=== PATIENT | male | born 1990 | race Caucasian/White ===

== ENCOUNTER 2017-12-31 00:14 | Emergency (ER) | payer MEDICAID ==
[~2017-12-31] VITALS: Ht 175.3 cm; Wt 119.4 kg
[2017-12-31 00:22] VITALS: BP 138/75
--- NOTE | 2017-12-31 00:29 | NUR ---
PT TAKEN TO BED 5
--- NOTE | 2017-12-31 00:29 | NUR ---
PATIENT PRESENTS TO ED WITH PRESSURE RIVER PAIN 10/10 X3 DAYS. PT STATES HE HAS TAKEN TYLENOL FOR PAIN WITHOUT RELIEFE. HE HAS SOME NAUSEA WITHOUT VOMITING AND STATES BLURRED VISION SINCE HEAD ACHES STARTED. SKIN IS PINK/WARM/DRY; AAOX4 WITH EVEN AND STEADY GAIT; LUNGS CLEAR BL; HR EVEN AND REGULAR; PT DENIES ANY FEVER, CP, SOB, OR COUGH AT THIS TIME; PATIENT STATES PAIN OF 10/10 AT THIS TIME; VSS; PATIENT POSITIONED FOR COMFORT; HOB ELEVATED; BEDRAILS UP X2; BED DOWN. ER MD MADE AWARE OF PT STATUS. CONTINUE TO MONITOR.
--- NOTE | 2017-12-31 00:40 | NUR ---
Dr. Rivers evaluating patient at bedside.
[2017-12-31] MEDS ORDERED: diphenhydrAMINE 50 MG/ML VIAL IVP ONE (00:55)
[2017-12-31] MEDS ORDERED: KETOROLAC 30 MG/ML VIAL IVP ONE (00:55)
[2017-12-31] MEDS ORDERED: PROCHLORPERAZINE 10 MG/2 ML VIAL IVP ONE (00:55)
--- NOTE | 2017-12-31 01:04 | NUR ---
PT TAKEN TO CT
--- NOTE | 2017-12-31 01:21 | NUR ---
PT RETURN FROM CT
[2017-12-31 01:34] LABS: BASOPHILS # (AUTO) 0.1 K/uL (0.00-0.22); BASOPHILS % (AUTO) 0.7 % (0.0-2.0); EOSINOPHILS # (AUTO) 0.3 K/uL (0-0.4); EOSINOPHILS % (AUTO) 2.9 % (0.0-4.0); HEMATOCRIT 42.6 % (36-52); HEMOGLOBIN 14.2 g/dL (12.0-18.0); LYMPHOCYTES # (AUTO) 2.8 K/uL (2.0-11.5); LYMPHOCYTES % (AUTO) 32.6 % (20.5-51.1); MEAN CORPUSCULAR HEMOGLOBIN 29 pg (27-31); MEAN CORPUSCULAR HGB CONC 33 g/dL (33-37); MEAN CORPUSCULAR VOLUME 86.8 fL (80-94); MONOCYTES # (AUTO) 0.7 K/uL (0.8-1.0); MONOCYTES % (AUTO) 8.2 % (1.7-9.3); NEUTROPHILS # (AUTO) 4.8 K/uL (1.8-7.7); NEUTROPHILS % (AUTO) 55.6 % (42.2-75.2); PLATELET COUNT (AUTO) 250 K/uL (140-450); RED BLOOD CELL COUNT(AUTO) 4.91 MIL/uL (4.20-6.10); RED CELL DISTRIBUTION WIDTH 13.5 % (11.6-13.7); WHITE BLOOD COUNT (AUTO) 8.6 K/uL (4.8-10.8)
[2017-12-31 01:43] LABS: ANION GAP 7.8 (8-16); CARBON DIOXIDE 30.1 mmol/L (21-32); CREATININE 1.1 mg/dL (0.7-1.3); POTASSIUM 3.9 mmol/L (3.5-5.1)
[2017-12-31 01:49] LABS: ALBUMIN 3.6 g/dL (3.4-5.0); TOTAL BILIRUBIN 0.5 mg/dL (0.0-1.0)
[2017-12-31] MEDS ORDERED: AMPICILLIN/SULBACTAM 3 GM in NACL 0.9% 100 ML IV ONE (02:15)
[2017-12-31] MEDS ORDERED: AMPICILLIN/SULBACTAM 3 GM VIAL ONE (02:22)
[2017-12-31 02:58] VITALS: BP 138/75
--- NOTE | 2017-12-31 02:58 | NUR ---
Patient discharged with v/s stable. Written and verbal after care instructions given and explained. Patient alert, oriented and verbalized understanding of instructions. Ambulatory with steady gait. All questions addressed prior to discharge. ID band removed. Patient advised to follow up with PMD. Rx of Augmentin, Ibuprofen, Reglan, Mucinex given. Patient educated on indication of medication including possible reaction and side effects. Opportunity to ask questions provided and answered.
== END 2017-12-31 02:58 | disposition home or self-care (01) ==
LOC: MED 00:14
DX: J01.10 Acute frontal sinusitis, unspecified (principal); J01.20 Acute ethmoidal sinusitis, unspecified; I10 Essential (primary) hypertension
CPT/HCPCS: 36415; 70450; 70486; 80053; 85025; 96365; 96375; 99285; J0295; J0780; J1200; J1885

== ENCOUNTER 2018-02-09 01:25 | Emergency (ER) | payer MEDICAID ==
[~2018-02-09] VITALS: Ht 175.3 cm; Wt 120.2 kg
[2018-02-09 01:25] VITALS: BP 127/76
[2018-02-09] MEDS ORDERED: DICYCLOMINE HCL LIQUID 20 MG, ALUMINUM HYD/MAG/SIMETHICONE 30 ML, LIDOCAINE VISCOUS 2% ... PO ONE ×3 (01:40)
[2018-02-09] MEDS ORDERED: ONDANSETRON 4 MG ODT PO ONE (01:40)
[2018-02-09 01:55] LABS: BASOPHILS # (AUTO) 0.1 K/uL (0.00-0.22); BASOPHILS % (AUTO) 1.2 % (0.0-2.0); EOSINOPHILS # (AUTO) 0.3 K/uL (0-0.4); EOSINOPHILS % (AUTO) 3.1 % (0.0-4.0); HEMATOCRIT 42.2 % (36-52); HEMOGLOBIN 14.4 g/dL (12.0-18.0); LYMPHOCYTES # (AUTO) 3.8 K/uL (2.0-11.5); LYMPHOCYTES % (AUTO) 40.1 % (20.5-51.1); MEAN CORPUSCULAR HEMOGLOBIN 29 pg (27-31); MEAN CORPUSCULAR HGB CONC 34 g/dL (33-37); MEAN CORPUSCULAR VOLUME 84.7 fL (80-94); MONOCYTES # (AUTO) 0.7 K/uL (0.8-1.0); MONOCYTES % (AUTO) 6.9 % (1.7-9.3); NEUTROPHILS # (AUTO) 4.7 K/uL (1.8-7.7); NEUTROPHILS % (AUTO) 48.7 % (42.2-75.2); PLATELET COUNT (AUTO) 250 K/uL (140-450); RED BLOOD CELL COUNT(AUTO) 4.99 MIL/uL (4.20-6.10); RED CELL DISTRIBUTION WIDTH 13.3 % (11.6-13.7); WHITE BLOOD COUNT (AUTO) 9.6 K/uL (4.8-10.8)
[2018-02-09 02:05] LABS: ANION GAP 12.5 (8-16); CARBON DIOXIDE 28.3 mmol/L (21-32); CREATININE 1.2 mg/dL (0.7-1.3); POTASSIUM 3.8 mmol/L (3.5-5.1)
[2018-02-09 02:12] LABS: ALBUMIN 4.1 g/dL (3.4-5.0); TOTAL BILIRUBIN 0.7 mg/dL (0.0-1.0)
[2018-02-09 02:18] VITALS: BP 127/76
== END 2018-02-09 02:18 | disposition home or self-care (01) ==
LOC: MED 01:25
DX: R04.2 Hemoptysis (principal); I10 Essential (primary) hypertension
CPT/HCPCS: 36415; 80053; 85025; 99284; S0119

== ENCOUNTER 2018-10-15 22:35 | Emergency (ER) | payer MEDICAID ==
[~2018-10-15] VITALS: Ht 175.3 cm; Wt 108.9 kg
--- NOTE | 2018-10-15 22:39 | NUR ---
PT TAKEN TO BED 9
[2018-10-15 22:42] VITALS: BP 122/90
--- NOTE | 2018-10-15 22:50 | NUR ---
28 y/o M presented to the ED with c/o r leg pain that radiates to the groin. AAOx4. NKA. Per pt was lifting child when he felt a cramp in his leg. Aching and throbbbing in sensation. Limited ROM in R leg. Unable to extend R leg without grimacing. 10/10 pain. SKin normal per ethnitcity. No echhymosis noted. Denies PHM. Bedrails x2 up for safety. notified. Will continue to monitor. Addendum: 10/16/18 at 0228 by MED 28 y/o M presented to the ED with c/o r leg pain that radiates to the groin. AAOx4. NKA. Per pt was lifting child when he felt a cramp in his leg. Aching and throbbbing in sensation. Limited ROM in R leg. Unable to extend R leg without grimacing. 10/10 pain. SKin normal per ethnitcity. No echhymosis noted. R knee replacement x 2 years ago. Bedrails x2 up for safety. notified. Will continue to monitor.
[2018-10-15] MEDS ORDERED: DIAZEPAM 5 MG TAB PO ONE (23:05)
[2018-10-15] MEDS ORDERED: KETOROLAC 60 MG/2 ML VIAL IM ONE (23:05)
[2018-10-15] MEDS ORDERED: HYDROcodone/APAP 5/325 MG 1 TAB TAB PO ONE (23:05)
--- NOTE | 2018-10-15 23:45 | NUR ---
Medicated Pt with [place] and Valium. At reassessment, Pt still had c/o pain. notified.
[2018-10-16] MEDS ORDERED: ONDANSETRON 4 MG/2 ML VIAL IVP ONE
[2018-10-16] MEDS ORDERED: MORPHINE SULFATE 4 MG/ML SYR IVP ONE
[2018-10-16] MEDS ORDERED: NACL 0.9% 1,000 ML IV ONE
[2018-10-16 02:04] LABS: APPEARANCE,URINE CLEAR (CLEAR); BILIRUBIN,URINE NEGATIVE (NEGATIVE); BLOOD, URINE NEGATIVE (NEGATIVE); COLOR,URINE ORANGE (YELLOW); LEUKOCYTE ESTERASE ,URINE NEGATIVE (NEGATIVE); NITRITE, URINE NEGATIVE (NEGATIVE); UGLUCOSE NEGATIVE (NEGATIVE)
--- NOTE | 2018-10-16 02:21 | NUR ---
Attempt to get Pt out of bed and ambulate. Able to stand briefly but felt weakness and was not able to ambulate any distance.
[2018-10-16 02:30] LABS: RBC,URINE 0-5 /HPF (0-5); WBC,URINE 0-5 /HPF (0-5)
[2018-10-16 03:20] LABS: ANION GAP 10.2 (8-16); CARBON DIOXIDE 29.9 mmol/L (21-32); CREATININE 1.1 mg/dL (0.7-1.3); POTASSIUM 4.1 mmol/L (3.5-5.1)
--- NOTE | 2018-10-16 03:46 | NUR ---
PT TAKEN TO BED 9 VIA W/C
--- NOTE | 2018-10-16 05:21 | NUR ---
Dr. Escoto evaluating patient at bedside.
[2018-10-16] MEDS ORDERED: KETOROLAC 30 MG/ML VIAL IVP ONE (05:25)
[2018-10-16] MEDS ORDERED: methylPREDNISolone SS 125 MG/2 ML VIAL IVP ONE (05:25)
--- NOTE | 2018-10-16 05:54 | NUR ---
PT TAKEN TO RAD
--- NOTE | 2018-10-16 05:56 | NUR ---
PT AMBULATED TO THE RESTROOM WITHOUT ASSISTANCE
--- NOTE | 2018-10-16 05:57 | NUR ---
PT AMBULATING WITH LITTLE ASSISTANCE TO THE RESTROOM. PT TOLERATED WELL.
[2018-10-16 06:05] VITALS: BP 124/91
--- NOTE | 2018-10-16 06:05 | NUR ---
Patient discharged with v/s stable. Written and verbal after care instructions given and explained. Patient alert, oriented and verbalized understanding of instructions. Ambulatory with steady gait. All questions addressed prior to discharge. ID band removed. Patient advised to follow up with PMD. Rx of OMEPRAZOLE, NORCO, PREDNISONE, AND NAPROSYN given. Patient educated on indication of medication including possible reaction and side effects. Opportunity to ask questions provided and answered.
== END 2018-10-16 06:05 | disposition home or self-care (01) ==
LOC: MED 22:35
DX: M51.16 Intervertebral disc disorders with radiculopathy, lumbar region (principal); I10 Essential (primary) hypertension
CPT/HCPCS: 36415; 72132; 80048; 81001; 96372; 96374; 96375; 99284; J1885; J2270; J2405; J2930; J7030; Q9967; 99283

== ENCOUNTER 2019-08-23 21:47 | Emergency (ER) | payer OTHER, MEDICAID ==
[~2019-08-23] VITALS: Ht 175.3 cm; Wt 121.1 kg
[2019-08-23 21:57] VITALS: BP 153/81
--- NOTE | 2019-08-23 21:57 | NUR ---
TO BED # 06 AMBULATORY
--- NOTE | 2019-08-23 22:02 | NUR ---
PT TAKEN TO BED 6
--- NOTE | 2019-08-23 22:12 | NUR ---
29/M C/O FORESKIN SWELLING AND ABRASIONS ON THE FORESKIN. STATES DYSURIA AND WHITE DISCHARGE. SYMPTOMS STARTED THIS AM.
--- NOTE | 2019-08-23 22:14 | NUR ---
Dr. Escoto examining patient.
[2019-08-23 22:57] VITALS: BP 142/72
--- NOTE | 2019-08-23 22:58 | NUR ---
Patient discharged with v/s stable. Written and verbal after care instructions given and explained. Patient alert, oriented and verbalized understanding of instructions. Ambulatory with steady gait. All questions addressed prior to discharge. ID band removed. Patient advised to follow up with PMD. Rx of naprosyn, keflex, clotrimazole given. Patient educated on indication of medication including possible reaction and side effects. Opportunity to ask questions provided and answered.
== END 2019-08-23 22:58 | disposition home or self-care (01) ==
LOC: MED 21:47
DX: N48.1 Balanitis (principal); K21.9 Gastro-esophageal reflux disease without esophagitis; I10 Essential (primary) hypertension; E11.9 Type 2 diabetes mellitus without complications
CPT/HCPCS: 81002; 82948; 99283

== ENCOUNTER 2019-10-29 21:45 | Emergency (ER) | payer OTHER, MEDICAID ==
[~2019-10-29] VITALS: Ht 175.3 cm; Wt 122.5 kg
[2019-10-29 21:48] VITALS: BP 136/86
--- NOTE | 2019-10-29 21:52 | NUR ---
PT TAKEN TO BED 4
--- NOTE | 2019-10-29 21:55 | NUR ---
PT 29 Y/O MALE BIB SELF FOR C/O N/V/D X 4 DAYS. PT ALSO HAS C/O COUGH AND SORE THROAT X 4 DAYS. PT AAO X4. RESPIRATIONS ARE EVEN AND UNLABORED. DRY COUGH NOTED. LUNG SOUNDS CLEAR A/P. PT ADMITS TO 6/10 EPIGATRIC PAIN. "IT'S TOLERABLE." PT STATES DAUGHTER TESTED POSITIVE FOR FLU AND THINKS HE HAS THE SAME SYMPTOMS. AFEBRILE. VSS. MEDHX: NONE ALLERGIES: NKA
--- NOTE | 2019-10-29 22:05 | NUR ---
Dr. Pedraza examining patient.
[2019-10-29] MEDS ORDERED: NACL 0.9% 1,000 ML IV ONE (23:20)
[2019-10-29] MEDS ORDERED: ONDANSETRON 4 MG/2 ML VIAL IVP ONE (23:20)
--- NOTE | 2019-10-29 23:30 | NUR ---
IV PLACED IN R AC. 20G. IV SITE PATENT. ZOFRAN IVP GIVEN FOR C/O NAUSEA. IVF NS 0.9% 1L BOLUS RUNNING CONTINOUSLY.
--- NOTE | 2019-10-30 00:28 | NUR ---
PT HAS C/O OF NAUSEA RETURNING. MADE AWARE. NEW ORDERS GIVEN.
[2019-10-30] MEDS ORDERED: ONDANSETRON 4 MG/2 ML VIAL IVP ONE (00:30)
--- NOTE | 2019-10-30 01:04 | NUR ---
PT STATES NAUSEA HAS DECREASED. IV FLUIDS ARE DONE. IV SITE IS PATENT. NO REDNESS SWELLING FOR C/O PAIN AT THIS TIME.
[2019-10-30 01:19] VITALS: BP 138/82
== END 2019-10-30 01:19 | disposition home or self-care (01) ==
LOC: MED 21:45
DX: A08.4 Viral intestinal infection, unspecified (principal); R19.7 Diarrhea, unspecified
CPT/HCPCS: 96361; 96374; 96376; 99284; J2405; J7030

== ENCOUNTER 2020-06-12 19:24 | Emergency (ER) | payer OTHER, MEDICAID ==
[~2020-06-12] VITALS: Ht 175.3 cm; Wt 122.5 kg
[2020-06-12 19:42] VITALS: BP 151/91
--- NOTE | 2020-06-12 20:00 | NUR ---
IN TENT SEEING PATIENT
[2020-06-12] MEDS ORDERED: NACL 0.9% 1,000 ML IV ONE (20:05)
[2020-06-12] MEDS ORDERED: KETOROLAC 30 MG/ML VIAL IVP ONE (20:05)
--- NOTE | 2020-06-12 20:10 | NUR ---
PT TAKEN TO BED 9
--- NOTE | 2020-06-12 20:20 | NUR ---
30 Y/O MALE C/O FEVER, +NAUSEA, CHEST TIGHTNESS, SWOLLEN FORESKIN AND BURING WITH URINATION X 1 DAY. PT DENIES PAIN AT THIS TIME. LUNG SOUNDS CLEAR. ABD SOFT NON TENDER. BOWEL SOUNDS ACTIVE. SKIN WARM AND DRY. NKA NO HX
--- NOTE | 2020-06-12 20:21 | NUR ---
LABS COLLECTED AND HANDED TO TALENT AGENT.
[2020-06-12 20:29] LABS: BASOPHILS % (AUTO) 0.8 % (0.0-2.0); EOSINOPHILS # (AUTO) 0.1 K/uL (0-0.4); EOSINOPHILS % (AUTO) 1.2 % (0.0-4.0); HEMATOCRIT 43.7 % (36-52); HEMOGLOBIN 14.6 g/dL (12.0-18.0); LYMPHOCYTES # (AUTO) 1.7 K/uL (2.0-11.5); MEAN CORPUSCULAR HEMOGLOBIN 29 pg (27-31); MEAN CORPUSCULAR HGB CONC 33 g/dL (33-37); MEAN CORPUSCULAR VOLUME 86.8 fL (80-94); MONOCYTES # (AUTO) 0.8 K/uL (0.8-1.0); MONOCYTES % (AUTO) 12.8 % (1.7-9.3); NEUTROPHILS # (AUTO) 3.3 K/uL (1.8-7.7); NEUTROPHILS % (AUTO) 56.2 % (42.2-75.2); PLATELET COUNT (AUTO) 149 K/uL (140-450); RED BLOOD CELL COUNT(AUTO) 5.03 MIL/uL (4.20-6.10); RED CELL DISTRIBUTION WIDTH 13.7 % (11.6-13.7); WHITE BLOOD COUNT (AUTO) 5.9 K/uL (4.8-10.8)
--- NOTE | 2020-06-12 20:36 | NUR ---
XRAY AT BEDSIDE
--- NOTE | 2020-06-12 20:37 | NUR ---
NOVEL SWAB DONE AND SENT TO LAB
[2020-06-12 20:42] LABS: ALBUMIN 3.7 g/dL (3.4-5.0); ANION GAP 18.4 (8-16); CARBON DIOXIDE 22.5 mmol/L (21-32); CREATININE 1.1 mg/dL (0.6-1.3); POTASSIUM 3.9 mmol/L (3.5-5.1); TOTAL BILIRUBIN 1.3 mg/dL (0.0-1.0)
[2020-06-12] MEDS ORDERED: INSULIN REGULAR, HUMAN 100 UNIT/ML VIAL IV STA (21:09)
--- NOTE | 2020-06-12 21:16 | NUR ---
Ultrasound at bedside.
[2020-06-12] MEDS ORDERED: INSULIN REGULAR, HUMAN 100 UNIT/ML VIAL IVP STA (21:19)
--- NOTE | 2020-06-12 22:13 | NUR ---
ERMD AT BEDSIDE EVALUATING PT
[2020-06-12 22:27] VITALS: BP 114/73
--- NOTE | 2020-06-12 22:27 | NUR ---
Patient discharged with v/s stable. Written and verbal after care instructions given and explained. Patient alert, oriented and verbalized understanding of instructions. Ambulatory with steady gait. All questions addressed prior to discharge. ID band removed. Patient advised to follow up with PMD. Rx of CLOTRIMAZOLE given. Patient educated on indication of medication including possible reaction and side effects. Opportunity to ask questions provided and answered.
== END 2020-06-12 22:27 | disposition home or self-care (01) ==
LOC: MED 19:24
DX: U07.1 COVID-19 (principal); R07.9 Chest pain, unspecified; E11.65 Type 2 diabetes mellitus with hyperglycemia; N48.1 Balanitis
CPT/HCPCS: 36415; 71045; 76705; 80053; 82948; 83036; 83880; 84484; 85025; 85610; 85730; 93005; 96361; 96374; 96375; 99285; J1815; J1885; J7030; Q0092; U0003

== ENCOUNTER 2020-06-13 06:05 | Emergency (ER) | payer OTHER, MEDICAID ==
[~2020-06-13] VITALS: Ht 175.3 cm; Wt 122.5 kg
[2020-06-13 06:15] VITALS: BP 147/79
--- NOTE | 2020-06-13 06:15 | NUR ---
PT TO AWAIT IN TENT.
--- NOTE | 2020-06-13 06:15 | NUR ---
30 Y/O MALE C/O FEVER. PT WAS SEEN YESTERDAY AT [facility]. PT ALSO C/O SOB, SORE THROAT, CONGESTION. PT STATES 8/10 SHARP GROIN PAIN. LUNG SOUNDS CLEAR. SKIN WARM AND DRY. MEDHX: EUSEBIA CHOWDHURY
--- NOTE | 2020-06-13 06:25 | NUR ---
ERMD EVALUATING PT
[2020-06-13] MEDS ORDERED: ACETAMINOPHEN 325 MG TAB PO ONE ×2 (06:30→07:05)
--- NOTE | 2020-06-13 06:30 | NUR ---
URINE COLLECTED AND SENT TO LAB
--- NOTE | 2020-06-13 07:07 | NUR ---
REPORT GIVEN TO ADRIANA SORIA FOR CONTINUITY OF CARE
[2020-06-13 07:21] LABS: APPEARANCE,URINE SL CLOUDY (CLEAR); BILIRUBIN,URINE NEGATIVE (NEGATIVE); BLOOD, URINE TRACE-I (NEGATIVE); COLOR,URINE AMBER (YELLOW); LEUKOCYTE ESTERASE ,URINE NEGATIVE (NEGATIVE); NITRITE, URINE NEGATIVE (NEGATIVE); UGLUCOSE 3+ (NEGATIVE)
[2020-06-13 08:14] VITALS: BP 147/79
[2020-06-13 08:14] LABS: WBC,URINE 0-5 /HPF (0-5)
== END 2020-06-13 08:15 | disposition home or self-care (01) ==
LOC: MED 06:05
DX: R50.9 Fever, unspecified (principal); E11.9 Type 2 diabetes mellitus without complications; Z20.828 Contact with and (suspected) exposure to other viral communicable diseases
CPT/HCPCS: 81001; 87086; 99283